=== PATIENT | female | born 1990 | race Caucasian/White ===

== ENCOUNTER 2022-08-19 08:12 | Emergency (ER) | payer BC ==
--- NOTE | 2022-08-19 08:49 | ERPHSYRPT ---
- History of Present Illness Source: patient, other (Pt's mother) Exam Limitations: no limitations Patient Subjective Stated Complaint: pt here for fluttering of chest this morning, onnce in er she states she feels like it has stopped, denies sob or pain Triage Nursing Assessment: pt alert, resp easy, skin w/d/p. no edema noted, chest clear Physician History: 31 yo wf w palpatations beginning at 6:10 this morning after pt woke up. Described sensation as fast and pounding. Palpatations resolved after getting to hospital. She denies chest pain/nausea/vomiting/cough/coryza/diaphoresis/fever. Pt has a h/o hypothyroidism due to a thyroidectomy but denies CAD/MS/HTN/DM. She has no h/o Afib/SVT, but brother has Afib. Timing/Duration: other (6:15 today) Activities at Onset: other (Putting make up on) Quality: other (No chest pain) Severity of Pain-Max: none Severity of Pain-Current: none Modifying Factors: Improves With: nothing Nitro Today/Relief: no nitro taken today Aspirin Treatment Today: no aspirin today Associated Symptoms: denies symptoms Prior Chest Pain/Cardiac Workup: no prior chest pain Allergies/Adverse Reactions: No Known Drug Allergies Allergy (Verified 08/19/22 08:23) Home Medications: Levothyroxine Sodium 200 mcg DAILY 08/10/12 [History] Hx Tetanus, Diphtheria Vaccination/Date Given: No Hx Influenza Vaccination/Date Given: No Hx Pneumococcal Vaccination/Date Given: No Immunizations Up to Date: Yes Travel Risk - International Travel Have you traveled outside of the country in past 3 weeks: No - Coronavirus Screening Are you exhibiting any of the following symptoms?: No Close contact with a COVID-19 positive Pt in past 14-21 Days: No - Vaccine Status Have you recieved a Covid-19 vaccination: No - Review of Systems Constitutional: No Symptoms Eyes: No Symptoms Ears, Nose, & Throat: No Symptoms Respiratory: No Symptoms Cardiac: No Symptoms, Palpitations Abdominal/Gastrointestinal: No Symptoms Genitourinary Symptoms: No Symptoms Musculoskeletal: No Symptoms Skin: No Symptoms Neurological: No Symptoms Psychological: No Symptoms Endocrine: No Symptoms Hematologic/Lymphatic: No Symptoms Immunological/Allergic: No Symptoms - Past Medical History Pertinent Past Medical History: Yes Endocrine Medical History: Hypothyroidism - Past Surgical History Past Surgical History: Yes Other Surgical History: THYROID REMOVED AND D&C - Social History Smoking Status: Never smoker Exposure to second hand smoke: No Drug Use: none Patient Lives Alone: No - Female History Hx Last Menstrual Period: jul Hx Now: No - Nursing Vital Signs Nursing Vital Signs: Initial Vital Signs Temperature 98.4 F 08/19/22 08:25 Pulse Rate 107 H 08/19/22 08:25 Respiratory Rate 18 08/19/22 08:25 Blood Pressure 116/60 08/19/22 08:25 O2 Sat by Pulse Oximetry 100 08/19/22 08:25 Pain Scale Pain Intensity 0 - Physical Exam General Appearance: no apparent distress, anxiety Eye Exam: PERRL/EOMI, eyes nml inspection Ears, Nose, Throat Exam: normal ENT inspection, TMs normal, pharynx normal, moist mucous membranes Neck Exam: normal inspection, non-tender, supple, full range of motion, No meningismus, No mass, No Brudzinski, No Kernig's Respiratory Exam: normal breath sounds, lungs clear, airway intact Cardiovascular Exam: tachycardia, capillary refill <2 sec, No murmur Gastrointestinal/Abdomen Exam: soft, normal bowel sounds Back Exam: normal inspection, normal range of motion, No CVA tenderness Extremity Exam: normal inspection, normal range of motion Neurologic Exam: alert, oriented x 3, cooperative, oil painter II-XII nml as tested, normal mood/affect, nml cerebellar function, nml station & gait, sensation nml Skin Exam: normal color, warm, dry Lymphatic Exam: No adenopathy SpO2 Interpretation: normal SpO2: 100 O2 Delivery: Room Air - Course Nursing assessment & vital signs reviewed: Yes EKG Interpreted by Me: RATE (Sinus tach/RRate 108/Normal QT-QTc/Low voltage/Incomplete RBBB) Ordered Tests: Active Orders 24 hr Category Date Time Status EKG-ER Only STAT Care 08/19/22 08:38 Completed CHEST 1 VIEW (PORTABLE) Stat Exams 08/19/22 08:38 Completed CBC W DIFF Stat Lab 08/19/22 09:00 Completed CMP Stat Lab 08/19/22 09:00 Completed NT PRO BNP Stat Lab 08/19/22 09:00 Completed PROTIME WITH INR Stat Lab 08/19/22 09:00 Completed PTT Stat Lab 08/19/22 09:00 Completed T4 (Thyroxine) Stat Lab 08/19/22 09:00 Completed TROPONIN Q4H Lab 08/19/22 09:00 Completed TSH, 3RD Generation Stat Lab 08/19/22 09:00 Completed Holter Monitor ONCE RT 08/19/22 10:49 Completed Lab/Rad Data: Laboratory Result Diagrams 08/19/22 09:00 08/19/22 09:00 Laboratory Results 08/19/22 08/19/22 08/19/22 Range/Units 09:00 09:00 09:00 WBC (4.0-10.5) x10^3/uL RBC (4.1-5.4) x10^6/uL Hgb (12.0-16.0) g/dL Hct (35-47) % MCV (78-100) fL MCH (26-32) pg MCHC (32-36) g/dL RDW (11.5-14.0) % Plt Count (150-450) x10^3/uL MPV (7.5-11.0) fL Gran % (36.0-66.0) % Immature Gran % (Auto) (0.00-0.4) % Nucleat RBC Rel Count (0.00-0.1) % Eos # (Auto) (0-0.5) x10^3/uL Immature Gran # (Auto) (0.00-0.03) x10^3u/L Absolute Lymphs (auto) (1.0-4.6) x10^3/uL Absolute Monos (auto) (0.0-1.3) x10^3/uL Absolute Nucleated RBC (0.00-0.01) x10^3u/L Lymphocytes % (24.0-44.0) % Monocytes % (0.0-12.0) % Eosinophils % (0.00-5.0) % Basophils % (0.0-0.4) % Absolute Granulocytes (1.4-6.9) x10^3/uL Basophils # (0-0.4) x10^3/uL PT 11.7 (9.4-12.5) SECONDS INR 1.11 (0.8-3.0) APTT 27.0 (25.1-36.5) SECONDS Sodium 140 (137-145) mmol/L Potassium 4.5 (3.5-5.1) mmol/L Chloride 105 (98-107) mmol/L Carbon Dioxide 30 (22-30) mmol/L Anion Gap 9.7 (5-15) MEQ/L BUN 12 (7-17) mg/dL Creatinine 0.75 (0.52-1.04) mg/dL Estimated GFR > 60.0 ML/MIN Glucose 95 (74-106) mg/dL Calcium 9.5 (8.4-10.2) mg/dL Total Bilirubin 0.80 (0.2-1.3) mg/dL AST 32 (14-36) U/L ALT 17 (0-35) U/L Alkaline Phosphatase 69 (38-126) U/L Troponin I < 0.012 (0.000-0.034) ng/mL NT-Pro-B Natriuret Pep 73.6 (0-450) pg/mL Serum Total Protein 7.9 (6.3-8.2) g/dL Albumin 4.8 (3.5-5.0) g/dL Thyroxine (T4) 18.3 H (5.53-10.96) ug/dL TSH 3rd Generation 0.293 L (0.47-4.68) mIU/L 08/19/22 Range/Units 09:00 WBC 4.7 (4.0-10.5) x10^3/uL RBC 4.46 (4.1-5.4) x10^6/uL Hgb 12.2 (12.0-16.0) g/dL Hct 39.3 (35-47) % MCV 88.1 (78-100) fL MCH 27.4 (26-32) pg MCHC 31.0 L (32-36) g/dL RDW 15.2 H (11.5-14.0) % Plt Count 262 (150-450) x10^3/uL MPV 9.3 (7.5-11.0) fL Gran % 56.2 (36.0-66.0) % Immature Gran % (Auto) 0.2 (0.00-0.4) % Nucleat RBC Rel Count 0.0 (0.00-0.1) % Eos # (Auto) 0.10 (0-0.5) x10^3/uL Immature Gran # (Auto) 0.01 (0.00-0.03) x10^3u/L Absolute Lymphs (auto) 1.53 (1.0-4.6) x10^3/uL Absolute Monos (auto) 0.37 (0.0-1.3) x10^3/uL Absolute Nucleated RBC 0.00 (0.00-0.01) x10^3u/L Lymphocytes % 32.7 (24.0-44.0) % Monocytes % 7.9 (0.0-12.0) % Eosinophils % 2.1 (0.00-5.0) % Basophils % 0.9 (0.0-0.4) % Absolute Granulocytes 2.63 (1.4-6.9) x10^3/uL Basophils # 0.04 (0-0.4) x10^3/uL PT (9.4-12.5) SECONDS INR (0.8-3.0) APTT (25.1-36.5) SECONDS Sodium (137-145) mmol/L Potassium (3.5-5.1) mmol/L Chloride (98-107) mmol/L Carbon Dioxide (22-30) mmol/L Anion Gap (5-15) MEQ/L BUN (7-17) mg/dL Creatinine (0.52-1.04) mg/dL Estimated GFR ML/MIN Glucose (74-106) mg/dL Calcium (8.4-10.2) mg/dL Total Bilirubin (0.2-1.3) mg/dL AST (14-36) U/L ALT (0-35) U/L Alkaline Phosphatase (38-126) U/L Troponin I (0.000-0.034) ng/mL NT-Pro-B Natriuret Pep (0-450) pg/mL Serum Total Protein (6.3-8.2) g/dL Albumin (3.5-5.0) g/dL Thyroxine (T4) (5.53-10.96) ug/dL TSH 3rd Generation (0.47-4.68) mIU/L - Progress Progress: improved Progress Note: 08/19/22 10:53 No ectopy in ER Pt asymptomatic in ER Spoke w maurisio Ortega w plan to placee Holter monitor and will f/u this week in office. Also alerted that thyroid over corrected. No food or housing insecurities noted Nursing note and vital signs reviewed All labs reviewed and results shared w pt Additional history per mother Pt discharged due to lack of ectopy in ER and resolution of symptoms wo evidence of MS Heart score 0 Wells Criteria for PE 1.5(1.3% chance of PE) Pt is a full code No housing or food insecurities noted 08/19/22 20:10 08/19/22 20:11 Counseled pt/family regarding: lab results, diagnosis, need for follow-up, rad results - Departure Departure Disposition: Home Clinical Impression: Heart palpitations Condition: Stable Critical Care Time: No Referrals: KAYLIE YEBOAH MD [Primary Care Provider] - Follow up/PCP as directed Instructions: Arrhythmias (DC), Palpitations (DC) Additional Instructions: Follow up with Dr. Yeboah in 2-3 days Return to ER for palpatations/Chest pain/Shortness of breath
[2022-08-19 09:15] LABS: Absolute Neutrophil Ct (ANC) 2.63 x10^3/uL (1.4-6.9); BASOPHIL % 0.9 % (0.0-0.4); Basophil (Absolute #) 0.04 x10^3/uL (0-0.4); Eosinophil % 2.1 % (0.00-5.0); Hematocrit 39.3 % (35-47); Hemoglobin 12.2 g/dL (12.0-16.0); IMMATURE GRAN # 0.01 x10^3u/L (0.00-0.03); IMMATURE GRAN % 0.2 % (0.00-0.4); Lymphocyte (Absolute #) 1.53 x10^3/uL (1.0-4.6); Lymphocytes % 32.7 % (24.0-44.0); Mean Cell Volume 88.1 fL (78-100); Mean Corpuscular Hemoglobin 27.4 pg (26-32); Mean Platelet Volume 9.3 fL (7.5-11.0); Monocyte (Absolute #) 0.37 x10^3/uL (0.0-1.3); Monocytes % 7.9 % (0.0-12.0); Neutrophil % 56.2 % (36.0-66.0); Platelet Count 262 x10^3/uL (150-450); Red Blood Count 4.46 x10^6/uL (4.1-5.4); Red Cell Distribution Width 15.2 % (11.5-14.0); White Blood Count 4.7 x10^3/uL (4.0-10.5)
--- NOTE | 2022-08-19 09:19 | XRAY ---
Indication: Palpitations. Comparison: None Portable chest demonstrates normal heart, lungs, and bony thorax.
[2022-08-19 09:21] LABS: INR 1.11 (0.8-3.0); PROTIME 11.7 SECONDS (9.4-12.5)
[2022-08-19 10:34] LABS: ALBUMIN 4.8 g/dL (3.5-5.0); ALKALINE PHOSPHATASE 69 U/L (38-126); ANION GAP 9.7 MEQ/L (5-15); BLOOD UREA NITROGEN 12 mg/dL (7-17); CHLORIDE 105 mmol/L (98-107); Calcium 9.5 mg/dL (8.4-10.2); Carbon Dioxide 30 mmol/L (22-30); Creatinine 1 0.75 mg/dL (0.52-1.04); EST GLOMERULAR FILTRATION RATE > 60.0 ML/MIN; Glucose 95 mg/dL (74-106); NT PRO BNP 73.6 pg/mL (0-450); Potassium 4.5 mmol/L (3.5-5.1); SGOT/AST 32 U/L (14-36); SGPT/ALT 17 U/L (0-35); SODIUM 140 mmol/L (137-145); T4 (Thyroxine) 18.3 ug/dL (5.53-10.96); TSH, 3RD Generation 0.293 mIU/L (0.47-4.68); Total Protein 7.9 g/dL (6.3-8.2)
[2022-08-19 10:59] VITALS: O2SAT 100
[2022-08-19 11:40] VITALS: BP 120/79; PULSE 88
== END 2022-08-19 11:42 | disposition home or self-care (01) ==
LOC: ED 08:12
DX: R00.2 Palpitations (principal); Z79.899 Other long term (current) drug therapy; Z28.310 Unvaccinated for COVID-19
CPT/HCPCS: 36415; 71045; 80053; 83880; 84436; 84443; 84484; 85025; 85610; 85730; 93005; 99283

== ENCOUNTER 2023-10-23 15:25 | Observation (INO) | payer BC ==
[2023-10-23 16:00] VITALS: O2SAT 100
[2023-10-23 16:31] VITALS: BP 121/75; PULSE 88
== END 2023-10-23 16:25 | disposition home or self-care (01) ==
LOC: OB 15:25
PROVIDERS: ADMIT Obstetrics & Gynecology; ATTEND Obstetrics & Gynecology
DX: Z34.83 Encounter for supervision of other normal pregnancy, third trimester (principal); Z3A.30 30 weeks gestation of pregnancy
CPT/HCPCS: G0378; G0379